=== PATIENT | female | born 1970 | race Caucasian/White ===

== ENCOUNTER 2019-02-15 07:46 | Emergency (ER) | payer OTHER ==
[~2019-02-15] VITALS: Ht 160 cm; Wt 77.1 kg
[2019-02-15 08:03] LABS: URINE BILIRUBIN NEGATIVE (Negative); URINE BLOOD 3+ (Negative); URINE CLARITY CLEAR; URINE COLOR YELLOW; URINE GLUCOSE-RANDOM* 3+ (Negative); URINE KETONES NEGATIVE (Negative); URINE LEUKOCYTES-REFLEX TRACE (Negative); URINE NITRITE-REFLEX POSITIVE (Negative); URINE PROTEIN (DIPSTICK) 1+ (Negative); URINE SPECIFIC GRAVITY 1.015 (1.005-1.035); URINE UROBILINOGEN 0.2 E.U./dl (0.2-1.0)
[2019-02-15 08:21] LABS: CASTS None Seen /LPF (None Seen); CRYSTALS None Seen /LPF (None Seen); SQUAMOUS 0-3 Few /LPF (0-3); URINE WBC-REFLEX >25 Many /HPF (0-5); WBC CLUMPS Moderate (None Seen)
[2019-02-15 08:22] LABS: URINE RBC >20 Many /HPF (0-2)
[2019-02-15 08:24] LABS: RENAL EPITHELIAL CELLS 0-3 Few /LPF (None Seen); TRANSITIONAL EPITHEL CELL 0-3 Few /LPF (None Seen)
[2019-02-15 08:27] LABS: ABSOLUTE NEUTROPHILS 4.6 thou/uL (1.4-8.2); BASOPHILS 0.3 % (0.0-2.0); EOSINOPHILS 1.9 % (0.0-3.0); HEMOGLOBIN 14.8 gm/dL (12.0-15.0); LYMPHOCYTES 19.6 % (24.0-44.0); MCH 29.3 pg (26.0-34.0); MCHC 35.3 g/dL (28.0-37.0); MONOCYTES 6.6 % (1.0-8.0); PLATELET COUNT 143 thou/uL (150-400); POLYS 71.6 % (36.0-66.0); RBC 5.06 mil/uL (4.20-5.00); RDW 13.3 % (10.5-14.5); WBC 6.4 thou/uL (4.0-11.0)
[2019-02-15 08:37] LABS: CALCIUM 9.6 mg/dL (8.5-10.1); CREATININE 0.9 mg/dL (0.6-1.0); POTASSIUM 4.1 mmol/L (3.5-5.1)
[2019-02-15 08:43] LABS: ALBUMIN 4.1 g/dL (3.4-5.0); TOTAL BILIRUBIN 0.6 mg/dL (<0.1-1.0); TOTAL PROTEIN 7.8 g/dL (6.4-8.2)
[2019-02-15 08:48] LABS: BE(vivo) -0.8 mmol/L (-2 to +3); HCO3 23.3 mmol/L (22.0-26.0); PCO2 36.7 mmHg (35.0-45.0); PO2 65.4 mmHg (80.0-100.0); sO2 93.4 % (92.0-98.0)
[2019-02-15] MEDS ORDERED: LEVEMIR SUBQ (09:04)
[2019-02-15] MEDS ORDERED: HUMALOG100 UNIT/1 SUBQ (09:04)
[2019-02-15] MEDS ORDERED: LISINOPRIL10 MG PO (09:05)
[2019-02-15] MEDS ORDERED: SYNTHROID112 MC1 PO (09:05)
[2019-02-15] MEDS ORDERED: BUSPIRONE HCL10 MG PO (09:05)
[2019-02-15] MEDS ORDERED: TRAZODONE 150150 M1 PO (09:06)
[2019-02-15] MEDS ORDERED: GABAPENTIN 100100 MG PO (09:06)
[2019-02-15] MEDS ORDERED: NEURONTIN100 MG PO (09:06)
[2019-02-15] MEDS ORDERED: LAMICTAL XR200 MG PO (09:06)
[2019-02-15] MEDS ORDERED: HYDROXYZINE HCL25 M1 PO (09:07)
[2019-02-15] MEDS ORDERED: ALPRAZOLAM 0.0.25 M1 PO (09:07)
[2019-02-15] MEDS ORDERED: RESTORIL15 M1 PO (09:07)
[2019-02-15] MEDS ORDERED: WELLBUTRIN SR150 MG PO (09:08)
[2019-02-15] MEDS ORDERED: ZOLOFT50 MG PO (09:08)
[2019-02-15] MEDS ORDERED: ONDANSETRON HCL4 M2 PO (09:11)
[2019-02-15] MEDS ORDERED: CEFDINIR300 MG PO (09:11)
[2019-02-15] MEDS ORDERED: TYLENOL EXTRA500 MG PO (09:11)
[2019-02-15 09:51] VITALS: BP 114/67
--- NOTE | 2019-02-15 16:57 | EKG ---
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 : 1970 Requested By: Marcus Saucedo Order Number: [id number] MD: Bruce Simon Measurements Intervals [place] Rate: 90 P: 17 MS: 144 QRS: 3 QRSD: 97 T: 40 QT: 386 QTc: 473 Interpretive Statements Sinus rhythm Poor R wave progression Nonspecific ST segment abnormality Compared to ECG 11/07/2001 05:05:43 Nonspecific change in the ST and T-wave segments Electronically Signed On 02-15-2019 16:56:56 CDT by Bruce Simon [email or web address] ��������������������������������������������� <ELECTRONICALLY SIGNED> ���������������������������������������� By: Bruce Simon MD, [facility] ��������������������������������������������� 02/15/19 1656 7 7 Bruce Simon MD, [facility] /EPI
== END 2019-02-15 09:14 | disposition home or self-care (01) ==
LOC: ER 07:46
PROVIDERS: Emergency Medicine
DX: N12 Tubulo-interstitial nephritis, not specified as acute or chronic (principal); E11.65 Type 2 diabetes mellitus with hyperglycemia; Z79.4 Long term (current) use of insulin; Z88.8 Allergy status to other drugs, medicaments and biological substances